=== PATIENT | male | born 1985 | race Caucasian/White ===

== ENCOUNTER 2017-01-08 01:01 | Emergency (ER) | payer OTHER ==
[2017-01-08 01:09] VITALS: BP 129/94; PULSE 77; RESP 14; TEMP 98.4; O2SAT 94
--- NOTE | 2017-01-08 01:12 | EDPHY ---
H & P Stated Complaint: L INDEX FINGER LAC HPI/ROS: HPI CHIEF COMPLAINT: Left index finger laceration HISTORY OF PRESENT ILLNESS: This patient very pleasant 31-year-old male, significant past medical history for hepatitis-C, otherwise healthy, presents to the emergency room with injury to the tip of his left index finger. He is right-hand dominant. His tetanus shot is not up-to-date. 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 He was able to control the bleeding this happened around 5:00 p.m.. He wrapped it in gauze he went home this evening removed the gauze around 11:00 p.m.. And was unable to get the bleeding to stop decided come the emergency room for evaluation. He does need a tetanus shot. Past Medical History: Hepatitis-C Past Surgical History: No recent surgical history Social History: Denies daily use drugs alcohol tobacco products, works at a local restaurant. Family History: Noncontributory ROS REVIEW OF SYSTEMS: A comprehensive 10 point review of systems is otherwise negative aside from elements mentioned in the history of present illness. Exam Constitutional appears well nontoxic, triage nursing summary reviewed, vital signs reviewed, awake/alert. Eyes normal conjunctivae and sclera, EOMI, PERRLA. HENT normal inspection, atraumatic, moist mucus membranes, no epistaxis, neck supple/ no meningismus, no raccoon eyes. Respiratory clear to auscultation bilaterally, normal breath sounds, no respiratory distress, no wheezing. Cardiovascular rate normal, regular rhythm, no murmur, no edema, distal pulses normal. Gastrointestinal soft, non-tender, no rebound, no guarding, normal bowel sounds, no distension, no pulsatile mass. Genitourinary no CVA tenderness. Musculoskeletal no midline vertebral tenderness, full range of motion, no calf swelling, no tenderness of extremities, no meningismus, good pulses, neurovascularly intact. Skin left hand index finger lateral aspect avulsion laceration present to the tip. Good capillary bleeding. No arterial injury no tendon injury. No but nail bed injury. He did clipped the distal aspect of the lateral aspect of the nail on the left index finger. pink, warm, & dry, no rash, skin atraumatic. Neurologic awake, alert and oriented x 3, AAOx3, moves all 4 extremities equally, motor intact, sensory intact, CN II-XII intact, normal cerebellar, normal vision, normal speech. Psychiatric normal mood/affect. Heme/Lymph/Immune no lymphadenopathy. Differential Diagnosis: Includes but is not limited to in a particular order, need for tetanus shot, left index finger laceration cleaning, and wound care. Need for Surgicel to control bleeding. There is no laceration that can be repaired. This is a avulsion laceration present. Medical Decision Making: Patient be placed in a finger splint with a dressing. After Surgicel applied. Patient's tetanus shot will be updated. He will need to monitor the site for infection. He sees any pus, redness, drainage needs return to the emergency room. Re-evaluation: 0208AM: Patient's wound had been copiously cleaned and irrigated. No foreign body or debris. No arterial injury. Surgicel has been applied. Finger in the splint. Good hemostasis. Safe for discharge. Understands return emergency room if he has any worsening symptoms questions or concerns watch for infection. Tetanus shot has been updated. Source: Patient - Personal History Current Tetanus/Diphtheria Vaccine: Unsure Current Tetanus Diphtheria and Acellular Pertussis (TDAP): Unsure - Medical/Surgical History Hx Asthma: No Hx Chronic Respiratory Disease: No Hx Diabetes: No Hx Cardiac Disease: No Hx Renal Disease: No Hx Cirrhosis: No Hx Alcoholism: No Hx HIV/AIDS: No Hx Splenectomy or Spleen Trauma: No - Social History Smoking Status: Heavy smoker Constitutional: Initial Vital Signs Temperature (C) 36.9 C 01/08/17 01:07 Heart Rate 77 01/08/17 01:07 Respiratory Rate 14 01/08/17 01:07 Blood Pressure 129/94 H 01/08/17 01:07 O2 Sat (%) 94 01/08/17 01:07 O2 Delivery Mode Room Air Allergies/Adverse Reactions: No Known Allergies Allergy (Unverified 01/08/17 01:06) Home Medications: Medication Instructions Recorded NO HOME MEDS 08/25/10 Medical Decision Making - Data Points Medications Given: Discontinued Medications Diphtheria/Tetanus/Acell Pertussis (Boostrix) 0.5 ml IM .ONCE ONE Stop: 01/08/17 01:34 Last Admin: 01/08/17 02:05 Dose: 0.5 ml Departure - Departure Disposition: Home, Routine, Self-Care Clinical Impression: Laceration of index finger Qualifiers: Encounter type: initial encounter Damage to nail status: with damage Foreign body presence: without foreign body Laterality: left Qualified Code(s): S61.311A - Laceration without foreign body of left index finger with damage to nail, initial encounter Condition: Good Instructions: Skin Avulsion (ED) Additional Instructions: 1. Keep your wound protected, clean and dry. 2. Your tetanus shot has been updated here in the emergency room. 3. Please monitor site for infection this includes worsening pain, swelling, drainage, pus. Redness. Return emergency room if you see this. Referrals: NONE *PRIMARY CARE P,. [Primary Care Provider] - As per Instructions Moo Salinas MD [Medical Doctor] - As per Instructions
[2017-01-08] MEDS ORDERED: TDAP ADULT 0.5 ML INJ (BOOSTRIX) IM ONE (01:33)
== END 2017-01-08 02:00 | disposition home or self-care (01) ==
DX: S61.311A Laceration without foreign body of left index finger with damage to nail, initial encounter (principal); F17.200 Nicotine dependence, unspecified, uncomplicated; Z23 Encounter for immunization; W26.0XXA Contact with knife, initial encounter; Y92.009 Unspecified place in unspecified non-institutional (private) residence as the place of occurrence of the external cause